=== PATIENT | male | born 1995 | race Caucasian/White ===

== ENCOUNTER 2017-12-15 19:40 | Emergency (ER) | payer OTHER ==
[~2017-12-15] VITALS: Ht 182.9 cm; Wt 65.0 kg
[2017-12-15 19:56] VITALS: BP 128/82
[2017-12-15] MEDS ORDERED: IBUPROFEN 200 MG TABLET ONE (20:09)
[2017-12-15] MEDS ORDERED: IBUPROFEN 200 MG TABLET PO ONE (20:30)
== END 2017-12-15 20:57 | disposition home or self-care (01) ==
LOC: ED 20:51
DX: S93.492A Sprain of other ligament of left ankle, initial encounter (principal); M25.472 Effusion, left ankle; F17.200 Nicotine dependence, unspecified, uncomplicated; W01.0XXA Fall on same level from slipping, tripping and stumbling without subsequent striking against object, initial encounter; Y93.39 Activity, other involving climbing, rappelling and jumping off; Y92.410 Unspecified street and highway as the place of occurrence of the external cause; Y99.8 Other external cause status
CPT/HCPCS: 29515; 99284